=== PATIENT | female | born 1985 | race Caucasian/White ===

== ENCOUNTER 2017-09-04 10:49 | Emergency (ER) | payer BC ==
[~2017-09-04] VITALS: Ht 172.7 cm; Wt 61.2 kg
[2017-09-04 11:00] VITALS: BP 102/71
[2017-09-04] MEDS ORDERED: PRED20TA PO (12:04)
[2017-09-04] MEDS ORDERED: DOXY100T PO (12:04)
[2017-09-04] MEDS ORDERED: ONDA4TAB10 PO (12:04)
--- NOTE | 2017-09-04 12:11 | PHYS DOC ---
General Chief Complaint: KNEE INJURY Stated Complaint: KNEE INJURY Time Seen by MD: 11:06 Source: patient, family Exam Limitations: no limitations Problems: History of Present Illness Initial Comments Patient is a 31-year-old female with history of lupus coming to the ED for right knee symptoms. Patient states that she had a steroid injection in her right knee on for what sounds like patellofemoral tracking syndrome. She states she was told to seek medical treatment and if she had any "streaking." She says today she has increased redness and has 2 small arita on the skin extending laterally which could be abrasions she feels as streaking. She complains of increased tenderness at the injection site however has no discomfort with active and passive full range of motion of the right knee. No fever chills sweats or body aches. Ambulates w/o limp, pt and her spouse are very concerned. ED VS normal Onset: other (3 days ago) Severity: mild Pain/Injury Location: right knee Method of Injury: other Modifying Factors: improves with other Allergies: Coded Allergies: No Known Drug Allergies (Unverified , 09/04/17) Past Medical History Medical History: other (SLE) Surgical History: no surgical history Social History Smoker: non-smoker Alcohol: none Drugs: none Review of Systems Constitutional: denies chills, denies diaphoresis, denies fever, denies malaise Respiratory: denies cough, denies shortness of breath Cardiovascular: denies chest pain, denies palpitations Gastrointestinal: denies nausea, denies vomiting Musculoskeletal: see HPI Skin: see HPI Psychiatric/Neurological: denies numbness, denies paresthesia, denies weakness Physical Exam General Appearance: WD/WN, no apparent distress Neck: non-tender, full range of motion, supple Cardiovascular/Respiratory: normal peripheral pulses, no respiratory distress Back: no CVA tenderness, no vertebral tenderness Knees: right knee normal range of motion, right knee no evidence of injury, right knee other (mild prepatellar bursal swelling and tenderness, ligaments intact, injection site 0.3cm circular erythema with mild tenderness appears normal, two thin 1cm lines extending laterally no bony TTP) Neurologic/Tendon: normal sensation, normal motor functions, normal tendon functions, responds to pain, no evidence tendon injury Psychiatric: alert, oriented x 3 Skin: warm/dry (R knee as above) Departure Time of Disposition: 12:09 Disposition: 01 HOME, SELF-CARE Diagnosis: right knee pain Condition: GOOD Patient Instructions: PRO - Routine Care for Injuries, [id number] Additional Instructions: PRO, see handout. As discussed we'll treat with doxycycline to briceño off any possible infection and prednisone to decrease swelling. Zofran ODT for nausea as needed. Follow-up with your doctor in 3-5 days for recheck. Return to ED with new or changing symptoms. MANAV IZAGUIRRE DO Sep 04, 2017 12:11
== END 2017-09-04 12:23 | disposition home or self-care (01) ==
LOC: ER 10:49
DX: M25.561 Pain in right knee (principal); M32.9 Systemic lupus erythematosus, unspecified
CPT/HCPCS: 99283

== ENCOUNTER 2017-10-06 12:31 | Inpatient (IN) | payer BC ==
[~2017-10-06] VITALS: Ht 172.7 cm; Wt 64.9 kg
[~2017-10-06 12:31] MED LIST: DOXY100T PO; ONDA4TAB10 PO; PRED20TA PO
[2017-10-06 13:12] VITALS: BP 111/71
[2017-10-06 13:15] VITALS: BP 111/71
[2017-10-06] MEDS ORDERED: ZOLPIDEM 5 MG TABLET. PO PRN (13:15)
[2017-10-06] MEDS ORDERED: ACETAMINOPHEN 500 MG TABLET PO PRN (13:15)
[2017-10-06 13:22] LABS: BASO % 1 % (0-3); EOS # 0.2 x10^3/uL (0.0-0.7); EOS % 4 % (0-3); HEMATOCRIT 35.2 % (36.0-47.0); LYMPH # 1.3 x10^3/uL (1.0-4.8); LYMPH % 32 % (24-48); MEAN CORPUSCULAR HEMOGLOBIN 30 pg (25-35); MEAN CORPUSCULAR HGB CONC 34 g/dL (31-37); MEAN CORPUSCULAR VOLUME 88 fL (79-100); MONO # 0.5 x10^3/uL (0.0-1.1); MONO % 11 % (0-9); NEUT # 2.2 x10^3uL (1.8-7.7); NEUT % 52 % (31-73); PLATELET COUNT 199 x10^3/uL (140-400); RED BLOOD COUNT 3.98 x10^6/uL (3.50-5.40); RED CELL DISTRIBUTION WIDTH 14.1 % (11.5-14.5); WHITE BLOOD COUNT 4.2 x10^3/uL (4.0-11.0)
[2017-10-06 13:32] LABS: ALBUMIN 3.6 g/dL (3.4-5.0); ALBUMIN/GLOBULIN RATIO 1.2 (1.0-1.7); C REACTIVE PROTEIN 0.7 mg/L (0-3.3); CALCIUM 8.4 mg/dL (8.5-10.1); CREATININE 0.7 mg/dL (0.6-1.0); POTASSIUM 3.8 mmol/L (3.5-5.1); TOTAL BILIRUBIN 0.3 mg/dL (0.2-1.0); TOTAL PROTEIN 6.5 g/dL (6.4-8.2)
[2017-10-06] MEDS ORDERED: traMADol 50 MG TABLET PO PRN ×2 (14:00→19:30)
[2017-10-06 14:26] LABS: SEDIMENTATION RATE 4 (0-25)
--- NOTE | 2017-10-06 15:11 | RAD ---
EXAM: Renal/retroperitonal ultrasound HISTORY: Bilateral flank pain. COMPARISON: Today's CT. FINDINGS: Ultrasound of the kidneys, bladder and retroperitoneum was performed. The right kidney measures 10.6 cm. Cortical thickness and echogenicity are preserved. The left kidney measures 10.2 cm. Cortical thickness and echogenicity are preserved. There are small extrarenal pelves bilaterally. Images of the bladder reveal no gross abnormality. Both ureteral jets are visualized. IMPRESSION: 1. Unremarkable examination of the kidneys. No hydronephrosis.
[2017-10-06 15:13] VITALS: BP 113/72
[2017-10-06] MEDS: IV NORMAL SALINE 1,000ML 1,000 ML IV SCH (15:15)
--- NOTE | 2017-10-06 15:16 | RAD ---
EXAM: CT abdomen/pelvis without contrast. HISTORY: Pyelonephritis, hematuria. Bloody stools. Abdominal pain. TECHNIQUE: Computed tomography of the abdomen and pelvis was performed without intravenous contrast. COMPARISON: Today's ultrasound. FINDINGS: Lung windows through the visualized portions of the bases reveal no abnormality. Bone windows reveal no suspicious lesions. The kidneys are unremarkable without contrast. There are no renal or ureteral calculi. There is no hydronephrosis or perinephric stranding. The gallbladder is surgically absent. The liver, spleen, adrenal glands, and pancreas are unremarkable. There are no pathologically enlarged lymph nodes. A small amount of free pelvic fluid is likely physiologic. The uterus and ovaries are unremarkable by noncontrast CT. There is no clear bowel wall thickening. The appendix is not inflamed. IMPRESSION: 1. No nephroureterolithiasis. No hydronephrosis. 2. No evidence of colitis by CT, though sensitivity is low. *One or more of the following individualized dose reduction techniques were utilized for this examination: 1. Automated exposure control. 2. Adjustment of the mA and/or kV according to patient size. 3. Use of iterative reconstruction technique.
[2017-10-06] MEDS ORDERED: HYDR200T PO (16:27)
[2017-10-06] MEDS ORDERED: TRAM50TA PO (16:29)
[2017-10-06] MEDS ORDERED: CELE200C PO (16:35)
[2017-10-06] MEDS ORDERED: PRIM50TA PO (16:35)
[2017-10-06] MEDS ORDERED: BENZ100C15 PO (16:37)
[2017-10-06] MEDS ORDERED: DIPH25CA58 PO (16:37)
[2017-10-06] MEDS ORDERED: GLUC1CAP48 PO (16:38)
[2017-10-06] MEDS: ONDANSETRON ODT 4 MG TAB.RAPDIS PO PRN (16:47)
[2017-10-06 18:26] VITALS: BP 107/66
[2017-10-06 20:32] LABS: CLARITY,URINE CLOUDY; COLOR,URINE YELLOW
[2017-10-06 20:33] LABS: BACTERIA,URINE MANY /HPF (0-FEW); BILIRUBIN,URINE NEG (NEG); GLUCOSE,URINE NEG (NEG); NITRITE,URINE NEG (NEG); SQUAMOUS EPITHELIAL CELL,UR MANY /LPF; UROBILINOGEN,URINE 0.2 mg/dL (0.2 mg/dL)
[2017-10-06 20:35] LABS: U PREG PATIENT NEGATIVE (NEG)
[2017-10-06] MEDS: HYDROXYCHLOROQUINE 200 MG TABLET PO SCH (20:58)
[2017-10-06] MEDS ORDERED: diphenhydrAMINE HCL 25 MG CAPSULE PO SCH (21:00)
[2017-10-06] MEDS ORDERED: BENZONATATE 100 MG CAPSULE. PO SCH (21:00)
[2017-10-06] MEDS ORDERED: PRIMIDONE 50 MG TABLET PO SCH (21:00)
[2017-10-06 23:09] VITALS: BP 100/62
[2017-10-07 03:00] VITALS: BP 100/62
[2017-10-07] MEDS: ONDANSETRON ODT 4 MG TAB.RAPDIS PO PRN (06:27)
[2017-10-07] MEDS: IV NORMAL SALINE 1,000ML 1,000 ML IV SCH (06:34)
[2017-10-07 07:56] VITALS: BP 96/65
[2017-10-07] MEDS: HYDROXYCHLOROQUINE 200 MG TABLET PO SCH (08:52)
[2017-10-07] MEDS ORDERED: GLUCOSAMINE/CHOND 500/400MG CAPSULE PO SCH (09:00)
[2017-10-07 10:39] VITALS: BP 96/65
--- NOTE | 2017-10-07 20:27 | DS ---
DATE OF DISCHARGE: 10/07/2017 HOSPITAL COURSE: A 31-year-old female for the last 2 weeks has been having pain in her right mid quadrant area. She was noted to have some hematuria; although, her CAT scan really does not show anything in particular as far as any evidences stones or pyelonephritis. However, on exam, she does have pain in her right mid quadrant area, fair tenderness and slight guarding. The patient has been having loose stools here for the last of weeks as well, but the pain has got progressively worst and the patient came into the office for further evaluation of this pain, which was debilitating enough to the point where she could not get relief with just oral medications. As a result of this, the patient was admitted and placed on IV fluids, and she will be transferred down to [facility] for GI specialist since not at here. She will be on clear liquid diet and monitor accordingly and have GI Medicine evaluated for a possible colitis. She was taking tramadol for pain. IMPRESSION: Abdominal pain, probable colitis, mild hematuria. SEYMOUR CHUN MD DR: NOEL/amisha JOB#: [id number] / [id number]
== END 2017-10-07 12:44 | disposition short-term general hospital (02) | DRG 392 ==
LOC: 1 SOUTH 12:31
PROVIDERS: ADMIT Family Medicine; ATTEND Family Medicine
DX: K52.9 Noninfective gastroenteritis and colitis, unspecified (principal); M32.8 Other forms of systemic lupus erythematosus; K92.1 Melena; R31.0 Gross hematuria; G57.93 Unspecified mononeuropathy of bilateral lower limbs; Z90.89 Acquired absence of other organs; Z87.891 Personal history of nicotine dependence
CPT/HCPCS: 36415; 74176; 76770; 80053; 81001; 81025; 82550; 83605; 85025; 85651; 86140; 87040; 87086; J0696; J1956; Q0162; Q0163; J7030

== ENCOUNTER 2017-10-31 18:18 | Emergency (ER) | payer BC ==
[~2017-10-31 18:18] MED LIST changes: +BENZ100C15 PO; +CELE200C PO; +DIPH25CA58 PO; +GLUC1CAP48 PO; +HYDR200T PO; +PRIM50TA PO; +TRAM50TA PO
[2017-10-31] MEDS ORDERED: HYDROmorphone PF 1 MG/ML DISP.SYRIN IM ONE (19:00)
[2017-10-31 19:31] VITALS: BP 99/50
--- NOTE | 2017-10-31 19:39 | PHYS DOC ---
General Chief Complaint: POST-OP PROBLEM Stated Complaint: POST OP PROBLEM Time Seen by MD: 18:57 Source: patient Exam Limitations: no limitations Problems: History of Present Illness Initial Comments Patient is a 31-year-old female who comes to the ED for postoperative pain. Patient states that she had a right knee arthroscopy [address] Gibbons was orthopedic surgeon. She was supposed to leave the compression dressing on for 3 days however felt that it was too tight this morning. She removed the dressing earlier this morning and has had pain throughout the day. Her knee has been painful since the procedure and she is allergic to most oral opiate medications. She does tolerate morphine and Dilaudid, she's been trying to get by on tramadol at home tonight the pain was so great she called the nurse and I recommended coming to the emergency department. On arrival her vital signs are normal she is able to ambulate on crutches and denies any fever chills sweats or body aches. Onset: other Severity: severe Pain/Injury Location: right knee Method of Injury: other Modifying Factors: worse with jarring, worse with movement, improves with pain medication Allergies: Coded Allergies: Penicillins (Verified Allergy, Unknown, 10/31/17) hydrocodone (Verified Allergy, Unknown, 10/31/17) oxycodone (Verified Allergy, Unknown, 10/31/17) Past Medical History Medical History: other (SLE, ) Surgical History: no surgical history Social History Smoker: non-smoker Alcohol: none Drugs: none Review of Systems Constitutional: denies chills, denies diaphoresis, denies fever Respiratory: denies cough, denies shortness of breath Cardiovascular: denies chest pain, denies palpitations, denies syncope Gastrointestinal: denies abdominal pain, denies diarrhea, denies nausea, denies vomiting Genitourinary: denies dysuria, denies frequency, denies hematuria, denies pain Musculoskeletal: see HPI Skin: denies change in color, denies lumps, denies rash Psychiatric/Neurological: denies headache, denies numbness, denies paresthesia , denies weakness Physical Exam General Appearance: WD/WN, no apparent distress Neck: non-tender, supple Cardiovascular/Respiratory: normal peripheral pulses, no respiratory distress Back: no CVA tenderness, no vertebral tenderness Knees: right knee other (2+ effusion, 2 port incisions clean and dry without erythema or discharge and knee is appropriately tender no pain with passive range of motion no extraordinary warmth or erythema, no cellulitic skin changes no bony tenderness) Neurologic/Tendon: normal sensation, normal motor functions, normal tendon functions, no evidence tendon injury Psychiatric: alert, oriented x 3 Skin: normal color, warm/dry Orders, Labs, Meds Patient rechecked her pain is resolved. Her vital signs remained stable. I discussed signs and symptoms to monitor as well as indications for urgent return to the department. I discussed ongoing postoperative care and close follow-up with orthopedic surgeon. Her questions were answered to her satisfaction and she expressed agreement and understanding of the treatment plan. Departure Time of Disposition: 19:37 Disposition: 01 HOME, SELF-CARE Diagnosis: postoperative right knee pain Condition: GOOD Patient Instructions: Pain Relief Preoperatively and Postoperatively Additional Instructions: Continue postoperative instructions given by your orthopedic surgeon. Keep her knee elevated as much as possible and try to stay off of it. Call surgeons office tomorrow to notify of tonight's visit. Follow up with him as directed. Return to ED with new or changing symptoms. MANAV IZAGUIRRE DO Oct 31, 2017 19:39
== END 2017-10-31 19:46 | disposition home or self-care (01) ==
LOC: ER 18:18
DX: G89.18 Other acute postprocedural pain (principal); M25.561 Pain in right knee; Z88.0 Allergy status to penicillin; Z88.5 Allergy status to narcotic agent
CPT/HCPCS: 96372; 99283; J1170

== ENCOUNTER 2018-07-29 15:46 | Emergency (ER) | payer BC ==
[~2018-07-29] VITALS: Ht 172.7 cm; Wt 58.1 kg
[2018-07-29 15:46] VITALS: BP 117/65
[~2018-07-29 15:46] MED LIST changes: +BENZ-8 PO; -BENZ100C15 PO; -HYDR200T PO; +HYDR200T71 PO
[2018-07-29] MEDS ORDERED: NAPR500T8 PO (16:28)
--- NOTE | 2018-07-29 16:28 | PHYS DOC ---
Past History Past Medical History: Other Past Surgical History: No Surgical History Alcohol Use: None Drug Use: None Adult General Chief Complaint Chief Complaint: HAND PROBLEM HPI HPI 32-year-old female presents with some pain from the medial aspect of her elbow that radiates down into her hand and she feels as if her little finger is numb. 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 She denies any other injuries. She also states the pain is much worse when she supinates and pronates her forearm and flexes and extends at the elbow.[] Review of Systems Review of Systems [] All other systems were reviewed and found to be within normal limits, except as documented in this note. Current Medications Current Medications Current Medications Medications (Trade) Dose Ordered Sig/Julio Start Time Stop Time Status Last Admin Dose Admin Ibuprofen (Motrin) 600 mg 1X ONCE 07/29/18 16:30 07/29/18 16:31 UNV Allergies Allergies Allergies Coded Allergies Type Severity Reaction Last Updated Verified Penicillins Allergy Unknown 10/31/17 Yes hydrocodone Allergy Unknown 10/31/17 Yes oxycodone Allergy Unknown 10/31/17 Yes Physical Exam Physical Exam Constitutional: Well developed, well nourished, no acute distress, non-toxic appearance. [] HENT: Normocephalic, atraumatic, bilateral external ears normal, oropharynx moist, no oral exudates, nose normal. [] Eyes: PERRLA, EOMI, conjunctiva normal, no discharge. [] Neck: Normal range of motion, no tenderness, supple, no stridor. [] Cardiovascular:Heart rate regular rhythm, no murmur [] Lungs & Thorax: Bilateral breath sounds clear to auscultation [] Abdomen: Bowel sounds normal, soft, no tenderness, no masses, no pulsatile masses. [] Skin: Warm, dry, no erythema, no rash. [] Back: No tenderness, no CVA tenderness. [] Extremities: Medial epicondyle of the left elbow is mildly tender to palp no obvious deformity] Neurologic: Alert and oriented X 3, normal motor function, normal sensory function, no focal deficits noted. [] Psychologic: Affect normal, judgement normal, mood normal. [] EKG EKG [] Radiology/Procedures Radiology/Procedures [] Course & Med Decision Making Course & Med Decision Making Pertinent Labs and Imaging studies reviewed. (See chart for details) [] Dragon Disclaimer Dragon Disclaimer This electronic medical record was generated, in whole or in part, using a voice recognition dictation system. Departure Departure: Impression: Primary Impression: Medial epicondylitis of left elbow Disposition: 01 HOME, SELF-CARE Condition: STABLE Referrals: SEYMOUR CHUN MD (PCP) Patient Instructions: Epicondylitis, Medial (Golfer's Elbow) with [facility]hab- [facility] Additional Instructions: Return to emergency with any new or concerning symptoms Scripts Naproxen (NAPROXEN) 500 Mg Tablet.dr 1 TAB PO Q12HR PRN for PAIN, #60 TAB 1 Refill Prov: CONSUELO DIETZ DO 07/29/18 CONSUELO DIETZ DO Jul 29, 2018 16:28
[2018-07-29] MEDS ORDERED: IBUPROFEN 600 MG TABLET. PO ONE (16:30)
== END 2018-07-29 17:00 | disposition home or self-care (01) ==
LOC: ER 15:46
DX: M77.02 Medial epicondylitis, left elbow (principal); Z88.0 Allergy status to penicillin; Z88.5 Allergy status to narcotic agent
CPT/HCPCS: 99282; 99283

== ENCOUNTER 2018-08-24 20:40 | Emergency (ER) | payer OTHER, BC ==
[~2018-08-24] VITALS: Ht 172.7 cm; Wt 56.7 kg
[~2018-08-24 20:40] MED LIST changes: +NAPR500T8 PO
[2018-08-24 21:46] LABS: BASO # 0.1 x10^3/uL (0.0-0.2); BASO % 1 % (0-3); EOS # 0.1 x10^3/uL (0.0-0.7); EOS % 2 % (0-3); HEMATOCRIT 35.1 % (36.0-47.0); HEMOGLOBIN 11.6 g/dL (12.0-15.5); LYMPH # 2.2 x10^3/uL (1.0-4.8); LYMPH % 26 % (24-48); MEAN CORPUSCULAR HEMOGLOBIN 29 pg (25-35); MEAN CORPUSCULAR HGB CONC 33 g/dL (31-37); MEAN CORPUSCULAR VOLUME 88 fL (79-100); MONO # 0.6 x10^3/uL (0.0-1.1); MONO % 8 % (0-9); NEUT # 5.3 x10^3uL (1.8-7.7); NEUT % 64 % (31-73); PLATELET COUNT 217 x10^3/uL (140-400); RED BLOOD COUNT 3.97 x10^6/uL (3.50-5.40); RED CELL DISTRIBUTION WIDTH 14.5 % (11.5-14.5); WHITE BLOOD COUNT 8.4 x10^3/uL (4.0-11.0)
--- NOTE | 2018-08-24 21:47 | PHYS DOC ---
Past History Past Medical History: Other Past Surgical History: Cholecystectomy, , Other Alcohol Use: None Drug Use: None Adult General Chief Complaint Chief Complaint: NAUSEA/VOMITING/DIARRHEA HPI HPI Patient is a 32 year old female who presents with complaint of headache, dizziness, and vomiting. Patient states that over the past 3 days she has been having problems with tremors, which she admits has been able recurrent problem. Patient however states that this evening at around 2000 she suddenly became very dizzy and had headache. She states that she felt like she was going to fall down and states that she had associated nausea and vomiting. Patient was brought to the emergency department for further evaluation by her significant other. The patient states that currently her headache is 5 out of 10. The patient states that she feels dizzy, even while laying down in the bed. She states that it does worsen when she tries to stand up. Denies any abdominal pain or fever. Denies any focal weakness. Review of Systems Review of Systems Constitutional: Denies fever or chills [] Eyes: Denies change in visual acuity, redness, or eye pain [] HENT: Denies nasal congestion or sore throat [] Respiratory: Denies cough or shortness of breath [] Cardiovascular: Denies chest pain or edema[] GI: Nausea, vomiting, denies abdominal pain, bloody stools or diarrhea [] : Denies dysuria or hematuria [] Musculoskeletal: Denies back pain or joint pain [] Integument: Denies rash or skin lesions [] Neurologic: Headache, dizziness, tremors, denies focal weakness[] All other systems were reviewed and found to be within normal limits, except as documented in this note. Current Medications Current Medications Current Medications Medications (Trade) Dose Ordered Sig/[facility] Start Time Stop Time Status Last Admin Dose Admin Famotidine (Pepcid Vial) 20 mg 1X ONCE 08/24/18 22:00 08/24/18 22:01 Fentanyl Citrate (Fentanyl 2ml Vial) 50 mcg PRN Q15MIN PRN 08/24/18 21:15 08/25/18 21:14 Ondansetron HCl (Zofran) 4 mg 1X ONCE 08/24/18 22:00 08/24/18 22:01 Sodium Chloride 1,000 ml @ 1,000 mls/hr Q1H 08/24/18 22:00 08/24/18 22:59 Allergies Allergies Allergies Coded Allergies Type Severity Reaction Last Updated Verified Penicillins Allergy Unknown 10/31/17 Yes hydrocodone Allergy Unknown 10/31/17 Yes oxycodone Allergy Unknown 10/31/17 Yes Physical Exam Physical Exam Constitutional: Alert, afebrile, vital signs stable, appears in mild to moderate discomfort. [] HENT: Normocephalic, atraumatic, bilateral external ears normal, oropharynx moist, no oral exudates, nose normal. [] Eyes: PERRLA, EOMI, bilateral horizontal nystagmus present, conjunctiva normal, no discharge. [] Neck: Normal range of motion, no tenderness, supple, no stridor. [] Cardiovascular:Heart rate regular rhythm, no murmur [] Lungs & Thorax: Bilateral breath sounds clear to auscultation [] Abdomen: Bowel sounds normal, soft, no tenderness, no masses, no pulsatile masses. [] Skin: Warm, dry, no erythema, no rash. [] Back: No tenderness, no CVA tenderness. [] Extremities: No tenderness, no cyanosis, no clubbing, ROM intact, no edema. [] Neurologic: Alert and oriented X 3, normal motor function, normal sensory function, no focal deficits noted. [] Current Patient Data Vital Signs Vital Signs Date Time Temp Pulse Resp B/P (MAP) Pulse Ox O2 Delivery O2 Flow Rate FiO2 08/24/18 20:52 97.9 62 22 100 Room Air Lab Results Laboratory Tests Test 08/24/18 21:20 08/24/18 21:30 08/24/18 22:35 Serum Test, Qualitative Negative White Blood Count 8.4 x10^3/uL Red Blood Count 3.97 x10^6/uL Hemoglobin 11.6 g/dL Hematocrit 35.1 % Mean Corpuscular Volume 88 fL Mean Corpuscular Hemoglobin 29 pg Mean Corpuscular Hemoglobin Concent 33 g/dL Red Cell Distribution Width 14.5 % Platelet Count 217 x10^3/uL Neutrophils (%) (Auto) 64 % Lymphocytes (%) (Auto) 26 % Monocytes (%) (Auto) 8 % Eosinophils (%) (Auto) 2 % Basophils (%) (Auto) 1 % Neutrophils # (Auto) 5.3 x10^3uL Lymphocytes # (Auto) 2.2 x10^3/uL Monocytes # (Auto) 0.6 x10^3/uL Eosinophils # (Auto) 0.1 x10^3/uL Basophils # (Auto) 0.1 x10^3/uL Sodium Level 140 mmol/L Potassium Level 3.7 mmol/L Chloride Level 106 mmol/L Carbon Dioxide Level 26 mmol/L Anion Gap 8 Blood Urea Nitrogen 11 mg/dL Creatinine 0.7 mg/dL Estimated GFR (Cockcroft-Gault) 96.4 BUN/Creatinine Ratio 16 Glucose Level 79 mg/dL Calcium Level 8.8 mg/dL Total Bilirubin 0.3 mg/dL Aspartate Amino Transf (AST/SGOT) 14 U/L Alanine Aminotransferase (ALT/SGPT) 21 U/L Alkaline Phosphatase 83 U/L Total Protein 6.4 g/dL Albumin 3.7 g/dL Albumin/Globulin Ratio 1.4 Lipase 291 U/L Urine Collection Type Unknown Urine Color Straw Urine Clarity Clear Urine pH 7.0 Urine Specific [place] <=1.005 Urine Protein Neg Urine Glucose (UA) Neg mg/dL Urine Ketones (Stick) Neg mg/dL Urine Blood Neg Urine Nitrite Neg Urine Bilirubin Neg Urine Urobilinogen Dipstick 0.2 mg/dL Urine Leukocyte Esterase Neg Urine RBC 0 /HPF Urine WBC 0 /HPF Urine Squamous Epithelial Cells Occ /LPF Urine Bacteria 0 /HPF Current Medications Medications (Trade) Dose Ordered Sig/Julio Route PRN Reason Start Time Stop Time Status Last Admin Dose Admin Fentanyl Citrate (Fentanyl 2ml Vial) 50 mcg PRN Q15MIN PRN IV PAIN GREATER THAN 3/10 08/24/18 21:15 08/25/18 21:14 08/24/18 21:44 Sodium Chloride 1,000 ml @ 1,000 mls/hr Q1H IV 08/24/18 22:00 08/24/18 22:59 DC 08/24/18 21:43 Ondansetron HCl (Zofran) 4 mg 1X ONCE IV 08/24/18 22:00 08/24/18 22:01 DC 08/24/18 21:43 Famotidine (Pepcid Vial) 20 mg 1X ONCE IVP 08/24/18 22:00 08/24/18 22:01 DC 08/24/18 21:44 Meclizine HCl (Antivert) 50 mg 1X ONCE PO 08/24/18 22:00 08/24/18 22:01 DC Iohexol (Omnipaque 300 Mg/ml) 75 ml 1X ONCE IV 08/24/18 22:00 08/24/18 22:07 DC 08/24/18 22:13 Sodium Chloride 1,000 ml @ 1,000 mls/hr 1X ONCE IV 08/24/18 23:15 08/25/18 00:14 08/24/18 23:20 EKG EKG Not performed[] Radiology/Procedures Radiology/Procedures [address] [address] IMAGING REPORT Signed PATIENT: LORENA GILBERT ACCOUNT: [id number] : 1985 LOCATION: ER AGE: 32 SEX: F EXAM STATUS: REG ER ORD. PHYSICIAN: DEL MICHAUD MD REASON: headache, dizziness PROCEDURE: CT HEAD WO CONTRAST CT HEAD WO CONTRAST History: Dizziness, sudden onset of headache, history of lupus Comparison: None. Technique: Noncontrast CT imaging was performed of the head. Exposure: One or more of the following individualized dose reduction techniques were utilized for this examination: 1. Automated exposure control 2. Adjustment of the mA and/or kV according to patient size 3. Use of iterative reconstruction technique. Findings: No acute extra-axial or parenchymal hemorrhage is identified. There is no significant intra-axial mass effect, midline shift, or extra-axial fluid collection. The hazel-white differentiation of the major vascular territories is preserved. The ventricles, sulci, and cisterns are within normal limits in size and configuration. The mastoid air cells and the visualized paranasal sinuses are aerated. No acute calvarial abnormality is identified. Impression: 1. No acute intracranial abnormality is identified. Electronically signed by: Ankita Boyle MD (08/24/2018 10:50 PM) [facility] DICTATED AND SIGNED BY: ANKITA BOYLE MD DATE: 08/24/182248 CC: SEYMOUR CHUN MD; DEL MICHAUD MD ~ [address] [address] IMAGING REPORT Signed PATIENT: LORENA GILBERT ACCOUNT: [id number] : 1985 LOCATION: ER AGE: 32 SEX: F EXAM STATUS: REG ER ORD. PHYSICIAN: DEL MICHAUD MD REASON: sudden onset headache, dizziness at 1999 PROCEDURE: CT ANGIOGRAPHY HEAD AND NECK CTA head and neck History: Sudden onset of severe headache and dizziness, lupus Technique: After bolus of intravenous contrast, volumetric CT data acquisition was acquired of the head and neck. Multiplanar reconstruction images to include MIP and 3-D reconstruction images are submitted. Exposure: One or more of the following individualized dose reduction techniques were utilized for this examination: 1. Automated exposure control 2. Adjustment of the mA and/or kV according to patient size 3. Use of iterative reconstruction technique. Contrast: 75 cc Omnipaque 300 Comparison: None Any determination of stenosis is based on NASCET criteria. CTA head: Findings: Both vertebral arteries constitute the basilar artery, dominant left vertebral artery. There is visualization of segments bilateral PICAs, AICAs not well visualized. There is visualization bilateral superior cerebellar arteries. There are small bilateral posterior communicating arteries. Anterior communicating artery is not well-visualized. There is visualization of the internal carotid arteries bilaterally at the skull base. There is visualization of the anterior, middle, posterior cerebral arteries bilaterally. No focal vessel occlusion/intraluminal filling defect is identified. No intracranial aneurysm is identified. Impression: 1. No intracranial vessel occlusion or aneurysm is identified. Neck CTA: Findings: No significant stenosis or dissection flap is identified of the cervical arterial vasculature. There is no abnormality of the visualized lung apices. Impression: 1. No significant stenosis or dissection flap is identified of the cervical arterial vasculature. Electronically signed by: Ankita Boyle MD (08/24/2018 11:06 PM) [facility] DICTATED AND SIGNED BY: ANKITA BOYLE MD DATE: 08/24/18 2256 CC: SEYMOUR CHUN MD; DEL MICHAUD MD ~ [] Course & Med Decision Making Course & Med Decision Making Pertinent Labs and Imaging studies reviewed. (See chart for details) Patient was treated with IV fluids, Zofran, fentanyl, and oral meclizine. Patient voices improvement symptoms. CT imaging shows no evidence of acute posterior circulation abnormality. Will continue patient on meclizine for treatment of vertigo. Advised follow-up with primary doctor in the next 1-2 days for reevaluation and return to emergency department for any worsening symptoms. Patient was understanding and agreement with treatment plan. Dragon Disclaimer Dragon Disclaimer This electronic medical record was generated, in whole or in part, using a voice recognition dictation system. Departure Departure: Impression: Primary Impression: Vertigo Disposition: 01 HOME, SELF-CARE Condition: IMPROVED Referrals: SEYMOUR CHUN MD (PCP) Patient Instructions: Vertigo Additional Instructions: Follow-up with your primary doctor in 1-2 days for reevaluation. Return to the emergency department for any worsening symptoms. Scripts Meclizine Hcl (MECLIZINE HCL) 25 Mg Tablet 1 TAB PO TID PRN for DIZZINESS, #30 TAB Prov: DEL MICHAUD MD 08/24/18 DEL MICHAUD MD Aug 24, 2018 21:47
[2018-08-24 21:58] LABS: PREG TEST PT QUAL NEGATIVE (NEG)
[2018-08-24 21:59] LABS: ALBUMIN 3.7 g/dL (3.4-5.0); ALBUMIN/GLOBULIN RATIO 1.4 (1.0-1.7); CALCIUM 8.8 mg/dL (8.5-10.1); CREATININE 0.7 mg/dL (0.6-1.0); GFR 96.4; POTASSIUM 3.7 mmol/L (3.5-5.1); TOTAL BILIRUBIN 0.3 mg/dL (0.2-1.0); TOTAL PROTEIN 6.4 g/dL (6.4-8.2)
[2018-08-24] MEDS ORDERED: IV NORMAL SALINE 1,000ML 1,000 ML IV SCH (22:00)
[2018-08-24] MEDS ORDERED: FAMOTIDINE 20 MG/2 ML VIAL IVP ONE (22:00)
[2018-08-24] MEDS ORDERED: ONDANSETRON PF 4 MG/2 ML VIAL. IV ONE (22:00)
[2018-08-24] MEDS ORDERED: IOHEXOL 300 MG/ML 75 ML VIAL. IV ONE (22:00)
[2018-08-24] MEDS ORDERED: MECLIZINE 12.5 MG TABLET. PO ONE (22:00)
--- NOTE | 2018-08-24 22:53 | RAD ---
CT HEAD WO CONTRAST History: Dizziness, sudden onset of headache, history of lupus Comparison: None. Technique: Noncontrast CT imaging was performed of the head. Exposure: One or more of the following individualized dose reduction techniques were utilized for this examination: 1. Automated exposure control 2. Adjustment of the mA and/or kV according to patient size 3. Use of iterative reconstruction technique. Findings: No acute extra-axial or parenchymal hemorrhage is identified. There is no significant intra-axial mass effect, midline shift, or extra-axial fluid collection. The hazel-white differentiation of the major vascular territories is preserved. The ventricles, sulci, and cisterns are within normal limits in size and configuration. The mastoid air cells and the visualized paranasal sinuses are aerated. No acute calvarial abnormality is identified. Impression: 1. No acute intracranial abnormality is identified. Electronically signed by: Colby Christianson MD (08/24/2018 10:50 PM) [facility]
[2018-08-24 22:54] LABS: BACTERIA,URINE 0 /HPF (0-FEW); BILIRUBIN,URINE NEG (NEG); CLARITY,URINE CLEAR; COLOR,URINE STRAW; GLUCOSE,URINE NEG (NEG); NITRITE,URINE NEG (NEG); RBC,URINE 0 /HPF (0-2); UROBILINOGEN,URINE 0.2 mg/dL (0.2 mg/dL); WBC,URINE 0 /HPF (0-4)
[2018-08-24 22:55] LABS: SQUAMOUS EPITHELIAL CELL,UR OCC /LPF
--- NOTE | 2018-08-24 23:09 | RAD ---
CTA head and neck History: Sudden onset of severe headache and dizziness, lupus Technique: After bolus of intravenous contrast, volumetric CT data acquisition was acquired of the head and neck. Multiplanar reconstruction images to include MIP and 3-D reconstruction images are submitted. Exposure: One or more of the following individualized dose reduction techniques were utilized for this examination: 1. Automated exposure control 2. Adjustment of the mA and/or kV according to patient size 3. Use of iterative reconstruction technique. Contrast: 75 cc Omnipaque 300 Comparison: None Any determination of stenosis is based on NASCET criteria. CTA head: Findings: Both vertebral arteries constitute the basilar artery, dominant left vertebral artery. There is visualization of segments bilateral PICAs, AICAs not well visualized. There is visualization bilateral superior cerebellar arteries. There are small bilateral posterior communicating arteries. Anterior communicating artery is not well-visualized. There is visualization of the internal carotid arteries bilaterally at the skull base. There is visualization of the anterior, middle, posterior cerebral arteries bilaterally. No focal vessel occlusion/intraluminal filling defect is identified. No intracranial aneurysm is identified. Impression: 1. No intracranial vessel occlusion or aneurysm is identified. Neck CTA: Findings: No significant stenosis or dissection flap is identified of the cervical arterial vasculature. There is no abnormality of the visualized lung apices. Impression: 1. No significant stenosis or dissection flap is identified of the cervical arterial vasculature. Electronically signed by: Colby Christianson MD (08/24/2018 11:06 PM) [facility]
[2018-08-24] MEDS ORDERED: IV NORMAL SALINE 1,000ML 1,000 ML IV ONE (23:15)
[2018-08-24] MEDS ORDERED: MECL25TA3 PO (23:29)
[2018-08-25 00:22] VITALS: BP 103/57
== END 2018-08-25 00:23 | disposition home or self-care (01) ==
LOC: ER 20:40
DX: R42 Dizziness and giddiness (principal); R51 Headache; R11.2 Nausea with vomiting, unspecified; Z88.0 Allergy status to penicillin; Z88.5 Allergy status to narcotic agent
CPT/HCPCS: 36415; 70450; 70496; 70498; 80053; 81001; 83690; 84703; 85025; 96361; 96374; 96375; 99285; J2405; J3010; J8597; Q9967; S0028; J7030

== ENCOUNTER → 2021-09-22 | Outpatient (CLI) | payer MEDICAID ==
[~2021-09-22] MED LIST changes: +MECL-75 PO
--- NOTE | 2021-09-22 16:23 | RAD ---
EXAM: Bilateral digital diagnostic mammogram with tomosynthesis; bilateral breast sonogram. HISTORY: 35-year-old female presents with a palpable left breast lump. TECHNIQUE: Full-field digital craniocaudal and mediolateral oblique 2D and 3D tomosynthesis images of both breasts are obtained for evaluation. Computer aided detection was applied. Sonographic imaging of both breasts targeted to sites of mammographic nodularity and the site of palpable concern was als o performed. COMPARISON: None. This is a baseline mammogram. BREAST PARENCHYMAL DENSITY: Level D - Extremely dense. FINDINGS: There is a small nodular asymmetry within the posterior 5:00 position of the right breast i n the craniocaudal projection. There is no convincing correlate in the mediolateral oblique projectio n. There is no suspicious finding at the 9:00 position of the left breast at the site of reported pal pable concern. There is no suspicious calcification or architectural distortion. Sonographic imaging of the right breast demonstrates a 5 mm complicated cyst with internal debris at the 5:00 position 4 cm from the nipple, likely corresponding with the mammographic finding of concern . There is dense breast parenchyma. There are scattered fibrocystic changes. There is no suspicious s onographic finding. Sonographic imaging of the left breast demonstrates a 7 mm simple appearing cyst at the 10:00 positio n 2 cm from the nipple, possibly corresponding with the palpable abnormality of concern. There is no suspicious sonographic finding within the surrounding left breast. There is dense breast recommend. T here are scattered fibrocystic changes. There is no suspicious sonographic finding. IMPRESSION: 1. Small bilateral breast cysts, the left of which is located at the 10:00 position and may correspon d with the palpable abnormality of concern. There is no suspicious mammographic or sonographic findin g. Continued clinical follow-up of palpable abnormalities is recommended. Negative imaging should not preclude the decision to biopsy a palpable abnormality if there is continuing concern. 2. BI-RADS Category 2: Benign finding(s). RECOMMENDATION: Bilateral screening mammography resuming age 40, or earlier if deemed indicated based on clinical history, is recommended per ACR guidelines. If your mammogram demonstrates that you have dense breast tissue, which could hide abnormalities, and if you have other risk factors for breast cancer that have been identified, you might benefit from s upplemental screening tests that may be suggested by your ordering physician. Dense breast tissue, i n and of itself, is a relatively common condition. This information is not provided to cause undue c oncern, but rather to raise your awareness and to promote discussion with your physician regarding th e presence of other risk factors, in addition to dense breast tissue. A report of your mammography re sults will be sent to you and your physician. You should contact your physician if you have any ques tions or concerns regarding this report. Mammography is a sensitive method for finding small breast cancers, but it does not detect them all a nd is not a substitute for careful clinical examination. A negative mammogram does not negate a clin ically suspicious finding and should not result in delay in biopsying a clinically suspicious abnorma lity. PQRS compliance statement - Patient information was entered into a reminder system with a target due date for the next mammogram. "Our facility is accredited by the [employer] Mammography Program." Electronically signed by: Nena Sampson MD (09/22/2021 4:21 PM) [id number]
== END ==
LOC: MAMMO 15:04
PROVIDERS: ATTEND Family Medicine
DX: N60.01 Solitary cyst of right breast (principal); N60.02 Solitary cyst of left breast; N64.89 Other specified disorders of breast
CPT/HCPCS: 76642; 77066; G0279; 77062